=== PATIENT | female | born 1960 | race African-American/Black ===

== ENCOUNTER 2020-03-18 18:27 | Emergency (ER) | payer MEDICAID ==
[~2020-03-18] VITALS: Ht 154.9 cm; Wt 58.4 kg
--- NOTE | 2020-03-18 18:44 | NUR ---
PT BIB EMS FOR HTN, 230'S/ 120S PER EMS, [facility] [place]. PT WAS AT [place], UNABLE TO FILL MEDS BECAUSE PT IS OUT OF TOWN. PT IS UPSET AND IRRATED. MD AT [facility] FOR ASSESMENT. INSPECTOR MACHINE PARTS APPLIED. PT NOT IN DISTRESS. BP CURRENTLY 244/144. IV ESTABLISHED BY EMS. NO MEDS GIVEN AT [facility] PER PT
--- NOTE | 2020-03-18 18:52 | NUR ---
REPORT TO STACY
[2020-03-18] MEDS ORDERED: LABETALOL 5MG/ML, 20ML IVPush ONE (19:00)
[2020-03-18] MEDS ORDERED: LABETALOL 20 MG/4 ML ONE (19:01)
[2020-03-18 19:40] LABS: ANION GAP 6 mmol/L (5-15); CALCIUM 9.3 mg/dL (8.5-10.1); CHLORIDE 107 mmol/L (98-107); CREATININE 0.71 mg/dL (0.55-1.02)
[2020-03-18] MEDS ORDERED: ENALAPRILAT 1.25 MG/ML, 2ML IV ONE (20:00)
[2020-03-18] MEDS ORDERED: ENALAPRILAT 1.25 MG/ML, 1ML ONE (20:15)
[2020-03-18 20:25] VITALS: BP 164/97
== END 2020-03-18 20:46 | disposition home or self-care (01) ==
LOC: ED 20:40
DX: I10 Essential (primary) hypertension (principal); R51 Headache; Z76.0 Encounter for issue of repeat prescription
CPT/HCPCS: 36415; 80048; 96374; 99283